=== PATIENT | female | born 1940 | race Caucasian/White ===

== ENCOUNTER 2020-03-26 15:50 | Emergency (ER) | payer MEDICARE, SELFPAY ==
[2020-03-26 16:00] VITALS: BP 148/61; PULSE 84; RESP 20; TEMP 36.4; O2SAT 97
--- NOTE | 2020-03-26 16:02 | ED.GENADULT ---
HPI - General Adult General Chief complaint: Upper Respiratory Infection Stated complaint: dizzy,ear crackles/sinus congestion Time Seen by Provider: 03/26/20 16:03 Source: patient and RN notes reviewed Mode of arrival: ambulatory Limitations: no limitations History of Present Illness HPI narrative: 79-year-old female presents with complaints of dizziness, left otalgia, tinnitus, upper respiratory infection symptoms, nasal congestion, sneezing, and rhinorrhea for the past 3-4 days. Dramamine X2 doses, last today at 12:30 with little relief. Denies drainage or decrease hearing. Denies injury to ear. Rhinorrhea and nasal congestion. Increase symptoms today with dry cough without chest congestion. No high fevers or chills. Denies nausea or vomiting. Exacerbating factors of dizziness consist of changing position too fast turning head from side to side too fast. Some relieving factors is sitting still. Denies ear itching, trauma to head, syncopal episodes, altered vision, altered speech, confusion, or seizure activity. Denies headache, numbness or tingling in extremities. The patient reports she have not been diagnosed with COVID-19. The patient reports she is not waiting for the results of a COVID-19 lab test. The patient reports she do not have fever, chills, weakness, fatigue, myalgia, or facial swelling. The patient reports she do not have worsening cough or shortness of breath. Denies chest pain. The patient reports she do not have any loss of taste, sore throat, abdominal pain, or diarrhea. Tolerating po intake well. Denies recent traveling. Denies concerns for COVID-19 or exposures been home with limited outdoor exposure except for essential household needs and return home. At this time, patient is not suspected of having COVID-19. Some parts of this dictation were generated by voice recognition software and may contain typographical and/or grammatical inaccuracies. Related Data Home Medications Medication Instructions Recorded Confirmed [place] 3-6-9 1 cap PO DAILY 07/06/19 07/28/19 calcium carbonate-vitamin D3 1 cap PO BID 07/06/19 07/28/19 [Calcium 600 + D(3)] fesoterodine [Toviaz] 8 mg PO HS 07/06/19 07/28/19 metoclopramide HCl [Reglan] 10 mg PO HS 07/06/19 07/28/19 pantoprazole 40 mg PO BID 07/06/19 07/28/19 phenytoin sodium extended 100 mg PO BID 07/06/19 07/28/19 [Dilantin Extended] vit C,Y-Dl-zaseg-lutein-zeaxan 1 tablet PO DAILY 07/06/19 07/28/19 [PreserVision AREDS-2] acetaminophen 650 mg 650 mg PO Q12H 02/07/20 tablet,extended release phenytoin sodium extended PO 03/26/20 Allergies Allergy/AdvReac Type Severity Reaction Status Date / Time Penicillins Allergy Mild Rash/HIVES Verified 02/07/20 14:38 codeine AdvReac Confusion Verified 03/26/20 16:00 TRIAMCINOLONE ACETONIDE Allergy Intermediate Hives Uncoded 02/07/20 14:38 GRASS AdvReac Unknown Itching Uncoded 02/07/20 14:38 Review of Systems Review of Systems: Narrative: CONSTITUTIONAL: Denies fever, chills, sweats. EYES: Denies visual changes, redness, discharge. ENT: Denies sore throat, decrease hearing, ear drainage. Complains of LT otalgia, rhinorrhea, congestion. CARDIOVASCULAR: Denies chest pain, palpitations, edema. RESPIRATORY: Denies dyspnea, wheezing. Complains of dry cough. GASTROINTESTINAL: Denies abdominal pain, nausea, vomiting, diarrhea. GENITOURINARY: Denies dysuria, hematuria, abnormal discharge. SKIN: Denies rash or itching. MUSCULOSKELETAL: Denies acute back pain, joint pain, or myalgia. NEUROLOGIC: Denies numbness or focal weakness. Complains of dizziness. PSYCHIATRIC: Denies anxiety or depression. All systems reviewed & are unremarkable except as noted in HPI and below. [facility] Past Medical History Medical History (Updated 03/26/20 @ 17:22 by NANCY Benavides) Endometriosis Fractured elbow RT GERD (gastroesophageal reflux disease) History of breast cancer History of poliomyelitis History of thrombosis
[2020-03-26 16:17] VITALS: BP 146/71; BP 146/72; PULSE 87; PULSE 90
[2020-03-26] MEDS: MECLIZINE HCL 25 MG TABLET PO (16:17)
[2020-03-26 16:18] VITALS: BP 138/71; PULSE 91
== END 2020-03-26 16:52 | disposition home or self-care (01) ==
PROVIDERS: Emergency Provider Nurse Practitioner Family; PCP Family Medicine Adolescent Medicine
DX: J00 Acute nasopharyngitis [common cold] (principal); J01.90 Acute sinusitis, unspecified; H66.002 Acute suppurative otitis media without spontaneous rupture of ear drum, left ear; R42 Dizziness and giddiness; Z20.828 Contact with and (suspected) exposure to other viral communicable diseases
CPT/HCPCS: 99213; A9270; G0463

== ENCOUNTER 2020-07-08 16:52 | Emergency (ER) | payer MEDICARE, SELFPAY ==
[2020-07-08 17:12] VITALS: BP 154/69; PULSE 78
--- NOTE | 2020-07-08 17:12 | ECG_ITS ---
Measurements Intervals [place] Rate: 78 P: 54 CT: 155 QRS: 1 QRSD: 88 T: 69 QT: 357 QTc: 407 Interpretive Statements SINUS RHYTHM NORMAL ECG Electronically Signed On 07-09-2020 7:39:51 TEST DEVELOPMENT ENGINEER by Manuel Aleman D.O.
[2020-07-08 17:28] VITALS: BP 146/72; PULSE 78
[2020-07-08 17:29] VITALS: BP 144/75; PULSE 83
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
== END 2020-07-08 18:18 | disposition home or self-care (01) ==
PROVIDERS: Emergency Provider Nurse Practitioner Family; PCP Family Medicine Adolescent Medicine
DX: H81.10 Benign paroxysmal vertigo, unspecified ear (principal); K21.9 Gastro-esophageal reflux disease without esophagitis; M19.90 Unspecified osteoarthritis, unspecified site; Z85.3 Personal history of malignant neoplasm of breast; H35.30 Unspecified macular degeneration; N61.1 Abscess of the breast and nipple
CPT/HCPCS: 93005; 99213; G0463

== ENCOUNTER → 2020-07-19 08:29 | Outpatient (CLI) | payer MEDICARE, SELFPAY ==
--- NOTE | ~2020-07-19 | MR_ITS ---
EXAMINATION: MR brain/brain stem wo con EXAM DATE: 07/19/2020 09:27 INDICATION: Recurrent severe vertigo. History of breast cancer. TECHNIQUE: Multi-sequential, multiplanar MR images of the brain, brainstem, internal auditory canals were obtained without contrast. Whole brain sagittal T1, axial diffusion, gradient echo (T2*), T1, T 2, FLAIR sequences obtained. High resolution coronal 3-D FIESTA, coronal T1 FSE, axial T1 FSPGR of t he internal auditory canals. There is no prior study for comparison. FINDINGS: No evidence of mastoid or middle ear opacification. The 7th/8th cranial nerve complexes a re symmetric, normal in course and caliber. No cerebellopontine angle masses. Posterior fossa unrem arkable. There are no areas of restricted diffusion to suggest acute infarction. There is no acute hemorrhage seen on the T2*, a hemosiderin sensitive sequence. No intraparenchymal brain mass lesion. There is mild to moderate periventricular and subcortical T2/FLAIR signal hyperintensity, nonspecific but prob ably related to small vessel ischemic disease (microangiopathy). There is mild to moderate prominen ce of the sulci and ventricles related to cerebral atrophy. There are no extra-axial collections. Flow voids are seen in the cerebral arteries on the T2-weighted sequences consistent with their expec michelle patency. Patient has had bilateral ocular lens surgery. Soft tissue is unremarkable. IMPRESSION: 1. No acute intracranial findings. 2. Chronic age related findings. Reviewed, dictated and finalized at location B. F DEVELOPMENT COORDINATOR RN
== END ==
PROVIDERS: PCP Family Medicine Adolescent Medicine; Visit Provider Family Medicine Adolescent Medicine
DX: R42 Dizziness and giddiness (principal)
CPT/HCPCS: 70551

== ENCOUNTER → 2020-08-31 10:16 | Outpatient (CLI) | payer MEDICARE, SELFPAY ==
--- NOTE | ~2020-08-31 | MR_ITS ---
EXAMINATION: MR brain/brain stem wo/w con DATE: 08/31/2020 11:20 INDICATION: Vertigo. TECHNIQUE: Magnetic resonance imaging (MRI) of the brain and brainstem was performed without and with 13 mL MultiHance intravenous contrast. Sequences included sagittal and axial T1-weighted FSE, axial diffusion-weighted FS EPI, axial T2*-weighted GRE, axial T2-weighted FLAIR Propeller, and axial T2-we ighted Propeller. Postcontrast sequences included axial and coronal T1-weighted FSE. Apparent diffusi on coefficient (ADC) maps were created. COMPARISON: Brain MRI 07/19/2020 FINDINGS: There are scattered areas of nonspecific increased T2-weighted signal intensity in the cere bral white matter. There is no intracranial hemorrhage, acute infarction, or abnormal intracranial ma ss lesion. The ventricles are normal in size. The paranasal sinuses are clear. There are likely oliver es of ocular lens replacement surgeries. The mastoid air cells are normal. IMPRESSION: 1. Stable moderate nonspecific cerebral white matter disease, which likely represents chronic small v essel ischemic disease. Reviewed, dictated and finalized at location A. R IMPRESSION: 1. Stable moderate nonspecific cerebral white matter disease, which likely repr esents chronic small vessel ischemic disease.
[2020-08-31 10:52] LABS: Estimated Glomerular Filt Rate > 60
== END ==
PROVIDERS: PCP Family Medicine Adolescent Medicine; Visit Provider Psychiatry & Neurology Neurology
DX: R42 Dizziness and giddiness (principal); R93.0 Abnormal findings on diagnostic imaging of skull and head, not elsewhere classified
CPT/HCPCS: 70553; A9577

== ENCOUNTER 2021-12-17 10:38 | Emergency (ER) | payer MEDICARE, SELFPAY ==
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
[2021-12-17 11:01] VITALS: BP 152/68; PULSE 98; RESP 18; TEMP 35.8; O2SAT 99
== END 2021-12-17 11:37 | disposition home or self-care (01) ==
PROVIDERS: Emergency Provider Nurse Practitioner Family; PCP Family Medicine Adolescent Medicine
DX: J32.8 Other chronic sinusitis (principal); N80.9 Endometriosis, unspecified; K21.9 Gastro-esophageal reflux disease without esophagitis; M19.90 Unspecified osteoarthritis, unspecified site; Z85.3 Personal history of malignant neoplasm of breast; Z90.13 Acquired absence of bilateral breasts and nipples
CPT/HCPCS: 99213; G0463

== ENCOUNTER 2022-03-27 14:18 | Emergency (ER) | payer MEDICARE, SELFPAY ==
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
[2022-03-27 14:24] VITALS: BP 160/84; PULSE 105; RESP 16; TEMP 36.5; O2SAT 98
== END 2022-03-27 15:04 | disposition home or self-care (01) ==
PROVIDERS: Emergency Provider Nurse Practitioner Family; PCP Family Medicine Adolescent Medicine
DX: J02.9 Acute pharyngitis, unspecified (principal); J32.9 Chronic sinusitis, unspecified; N80.9 Endometriosis, unspecified; K21.9 Gastro-esophageal reflux disease without esophagitis; Z85.3 Personal history of malignant neoplasm of breast; M19.90 Unspecified osteoarthritis, unspecified site; Z90.10 Acquired absence of unspecified breast and nipple; Z86.718 Personal history of other venous thrombosis and embolism
CPT/HCPCS: 87081; 87880; 99213; G0463